=== PATIENT | male | born 1990 ===

== ENCOUNTER 2020-10-17 08:27 | Day surgery (SDC) | payer BC ==
[~2020-10-17 08:27] MED LIST: LACTATED RINGERS 1,000 ML IV SCH
[2020-10-17] MEDS ORDERED: ONDANSETRON 4 MG/2 ML INJ IV PRN (09:15)
[2020-10-17] MEDS ORDERED: fentaNYL 100 MCG/2 ML INJ IV PRN (09:15)
--- NOTE | 2020-10-17 09:19 | Anesthesia Consultation ---
Anesthesia Consult and Med Hx Date of service: 10/17/20 - Airway Anesthetic Teeth Evaluation: Good ROM Head & Neck: Adequate Mental/Hyoid Distance: Adequate Mallampati Class: Class II Intubation Access Assessment: Probably Good - Pre-Operative Health Status ASA Pre-Surgery Classification: ASA1 Proposed Anesthetic Plan: General - Pulmonary Hx Smoking: No Hx Asthma: No Hx Respiratory Symptoms: No SOB: No COPD: No Home Oxygen Therapy: No Hx Pneumonia: No Hx Sleep Apnea: No - Cardiovascular System Hx Hypertension: No Hx Coronary Artery Disease: No Hx Heart Attack/AMI: No Hx Angina: No Hx Percutaneous Transluminal Coronary Angioplasty (PTCA): No Hx Cardia Arrhythmia: No Hx Pacemaker: No Hx Internal Defibrillator: No Hx Valvular Heart Disease: No Hx Heart Murmur: No Hx Peripheral Vascular Disease: No - Central Nervous System Hx Neuromuscular Disorder: No Hx Seizures: No CVA: No Hx Back Pain: No Hx Psychiatric Problems: No - Gastrointestinal Hx Ulcer: No Hx Gastroesophageal Reflux Disease: No - Endocrine Hx Renal Disease: Yes (kidney stones) Hx End Stage Renal Disease: No Hx Cirrhosis: No Hx Liver Disease: No Hx Insulin Dependent Diabetes: No Hx Non-Insulin Dependent Diabetes: No Hx Thyroid Disease: No Hx Hypothyroidism: No Hx Hyperthyroidism: No - Hematic Hx Anemia: No Hx Sickle Cell Disease: No - Other Systems Hx Alcohol Use: Yes (Occas) Hx Substance Use: No Hx Cancer: No Hx Obesity: No
--- NOTE | 2020-10-17 09:20 | Anesthesia Day of Surgery ---
Anesthesia Day of Surgery - Day of Surgery Patient Examined: Yes Patient H&P Reviewed: Yes Patient is NPO: Yes
[2020-10-17] MEDS: MIDAZOLAM 2 MG/2 ML INJ IV NR ×2 (09:45→10:40)
[2020-10-17] MEDS ORDERED: ceFAZolin/STERILE WATER 2 GM/20 ML SYRINGE IV NR (10:00)
[2020-10-17] MEDS ORDERED: dexAMETHasone 20 MG/5 ML VIAL ONE (11:17)
[2020-10-17] MEDS ORDERED: ONDANSETRON 4 MG/2 ML INJ ONE (11:17)
[2020-10-17] MEDS ORDERED: HYDROmorphone 1 MG/1 ML INJ ONE (11:17)
[2020-10-17] MEDS ORDERED: LIDOCAINE MPF (2%) 20 MG/1 ML VIAL 5 ML ONE (11:17)
[2020-10-17] MEDS ORDERED: propofoL 200 MG/20 ML VIAL IV ONE (11:18)
[2020-10-17] MEDS ORDERED: fentaNYL 100 MCG/2 ML INJ ONE (11:18)
--- NOTE | 2020-10-17 11:24 | Post Operative Note ---
Date of procedure: 10/17/20 Pre-op diagnosis: LEFT URETERAL STONE S Post-op diagnosis: same Findings: ABOVE Procedure: CYSTO RPG STENT Anesthesia: GETA Surgeon: HUSSEIN RAMIREZ Estimated blood loss: none Pathology: none Condition: stable Disposition: PACU
--- NOTE | 2020-10-17 11:26 | Discharge Summary ---
Short Stay Discharge Plan Activity: other (NO STRAININ G ) Weight Bearing Status: Full Weight Bearing Diet: regular Special Instructions: other (INC FLUIDS ) Durable Medical Equipment Needed Upon Discharge: other (HAS J STENT ) Follow up with: PRIMARY CARE, [Primary Care Provider] - 7 Days HUSSEIN RAMIREZ MD [Staff Physician] - 7 Days
[2020-10-17] MEDS ORDERED: ePHEDrine SULFATE 50 MG/1 ML INJ ONE (12:05)
[2020-10-17] MEDS ORDERED: IOHEXOL 240 MG/ML 100 ML IV ONE (12:24)
[2020-10-17] MEDS ORDERED: WATER FOR IRRIG STERILE 2000 ML IR ONE (12:24)
--- NOTE | 2020-10-17 13:18 | Operative Report ---
PREOPERATIVE DIAGNOSES: Left renal stones, left upper ureteral stone. POSTOPERATIVE DIAGNOSES: Left renal stones, left upper ureteral stone. PROCEDURE: Cystoscopy, left retrograde, left ureteral balloon dilatation, ureteroscopy, laser of this ureteral stone into about 7-8 fragments, double-J stent. SURGEON: Dr. Hussein ANESTHESIA: General. FINDINGS: This is a gentleman with multiple left ureteral stone and upper ureteral stone. He now presents for treatment. He knows we may only place a stent. DESCRIPTION OF PROCEDURE: The patient was brought to the operative room and placed on the operating table. Following induction of anesthesia, placed in lithotomy position, prepped and draped in usual sterile fashion. Cystourethroscopy showed a stone in the upper ureter, lots of edema. At this point, 2 wires were placed. Balloon dilatation was carried out because the orifice was small. Ureteroscopy revealed the stone was quite large and it was lasered into multiple fragments. The patient tolerated the procedure well. The scope was removed and a double J coiled in the kidney and bladder, we left the string. I suspect we will do lithotripsy in the lower pole stones at a later date. He was brought to recovery in stable condition. JOB# [id number] CAROLE/BESSIE
--- NOTE | 2020-10-17 14:03 | Post Anesthesia Evaluation ---
- Post Anesthesia Evaluation Patient Participated: Yes Airway Patent: Yes Stable Respiratory Function: Yes Nausea/Vomiting: No Temp > 96.8F: Yes Pain Manageable: Yes Adequeate Hydration: Yes Anesthesia Complications: No
[2020-10-17 15:40] VITALS: BP 124/68
--- NOTE | 2020-10-17 16:38 | Fluoroscopy Report ---
6 fluoroscopic images submitted Indication: Intraoperative localization Impression: 6 images of the abdomen were submitted for documentation purposes with radiology involve adonay. Patient underwent left-sided retrograde pyelogram followed by ureteroscopy and stone removal. Ultimately a left-sided double-J ureteral stent was placed. A total of 35 mL of Omnipaque 300 was uti lized for this exam. Please refer to the operative note for complete details. Fluoroscopic time: 1 minute and 9 seconds Signer Name: Glenn Craig MD Signed: 10/17/2020 4:33 PM Workstation Name: [id number]
== END 2020-10-17 08:28 | disposition home or self-care (01) ==
LOC: OR 08:27
PROVIDERS: ATTEND Urology
DX: N13.2 Hydronephrosis with renal and ureteral calculous obstruction (principal); Z79.899 Other long term (current) drug therapy; Z72.89 Other problems related to lifestyle; Z98.890 Other specified postprocedural states
CPT/HCPCS: 52356; 74420; 74485; A4217; C1726; C1758; C1769; C2617; J0690; J1100; J1170; J2250; J2405; J2704; J7120; Q9967; J3010

== ENCOUNTER 2020-11-03 06:13 | Day surgery (SDC) | payer BC ==
[2020-11-03] MEDS: MIDAZOLAM 2 MG/2 ML INJ IV NR ×2 (06:46→07:05)
--- NOTE | 2020-11-03 06:54 | Anesthesia Day of Surgery ---
Anesthesia Day of Surgery - Day of Surgery Patient Examined: Yes Patient H&P Reviewed: Yes Patient is NPO: Yes
--- NOTE | 2020-11-03 06:54 | Anesthesia Consultation ---
Anesthesia Consult and Med Hx Date of service: 11/03/20 - Airway Anesthetic Teeth Evaluation: Good ROM Head & Neck: Adequate Mental/Hyoid Distance: Adequate Mallampati Class: Class II Intubation Access Assessment: Good - Pulmonary Exam CTA: Yes - Cardiac Exam Cardiac Exam: RRR - Pre-Operative Health Status ASA Pre-Surgery Classification: ASA1 Proposed Anesthetic Plan: General - Pulmonary Hx Smoking: No Hx Asthma: No Hx Respiratory Symptoms: No SOB: No COPD: No Hx Pneumonia: No Hx Sleep Apnea: No (DERECK PRE SCREEN LOW RISK) - Cardiovascular System Hx Hypertension: No Hx Coronary Artery Disease: No Hx Heart Attack/AMI: No Hx Angina: No Hx Percutaneous Transluminal Coronary Angioplasty (PTCA): No Hx Cardia Arrhythmia: No Hx Pacemaker: No Hx Internal Defibrillator: No Hx Valvular Heart Disease: No Hx Heart Murmur: No Hx Peripheral Vascular Disease: No - Central Nervous System Hx Neuromuscular Disorder: No Hx Seizures: No CVA: No Hx Back Pain: No Hx Psychiatric Problems: No - Gastrointestinal Hx Ulcer: No Hx Gastroesophageal Reflux Disease: No - Endocrine Hx Renal Disease: Yes (kidney stones) Hx End Stage Renal Disease: No Hx Cirrhosis: No Hx Liver Disease: No Hx Insulin Dependent Diabetes: No Hx Non-Insulin Dependent Diabetes: No Hx Thyroid Disease: No Hx Hypothyroidism: No Hx Hyperthyroidism: No - Hematic Hx Anemia: No Hx Sickle Cell Disease: No - Other Systems Hx Alcohol Use: Yes (OCC.) Hx Substance Use: No Hx Cancer: No Hx Obesity: No
[2020-11-03] MEDS ORDERED: LIDOCAINE MPF (2%) 20 MG/1 ML VIAL 5 ML ONE (06:58)
[2020-11-03] MEDS ORDERED: fentaNYL 100 MCG/2 ML INJ ONE (06:58)
[2020-11-03] MEDS ORDERED: propofoL 200 MG/20 ML VIAL IV ONE (06:58)
[2020-11-03] MEDS ORDERED: ONDANSETRON 4 MG/2 ML INJ IV PRN (07:24)
[2020-11-03] MEDS ORDERED: HYDROcodone/ACETAMINOPHEN 5-325 MG TAB PO PRN (07:24)
[2020-11-03] MEDS ORDERED: ceFAZolin/STERILE WATER 2 GM/20 ML SYRINGE IV NR (07:26)
[2020-11-03] MEDS ORDERED: ONDANSETRON 4 MG/2 ML INJ ONE (08:13)
--- NOTE | 2020-11-03 08:57 | Operative Report ---
PREOPERATIVE DIAGNOSIS: Left renal ureteral stone. POSTOPERATIVE DIAGNOSES: Left renal ureteral stone. PROCEDURE: Left lithotripsy. SURGEON: Dr. Hussein. ANESTHESIA: General. FINDINGS: This is a gentleman who had a large ureteral stone in the upper ureter. Ureteroscopy and laser destroyed that one. He has a cluster of stones, also in the left lower pole and now presents for lithotripsy with a double-J stent in place. DESCRIPTION OF PROCEDURE: The patient was brought to lithotripsy unit and placed on the operating table. Following induction of anesthesia, the stone was easily localized both the AP and oblique image. Shocks were begun at 1 kV. A renal pause was carried out, increased to a maximum of 8 kV. Good fragmentation was obtained. The patient tolerated the procedure well. No significant complications, brought to recovery in stable condition. JOB# [id number] CAROLE/BESSIE
--- NOTE | 2020-11-03 09:33 | Post Operative Note ---
Date of procedure: 11/03/20 Pre-op diagnosis: L renal stones Post-op diagnosis: same Findings: as above Procedure: L eswl Anesthesia: ROSINA Surgeon: HUSSEIN RAMIREZ Estimated blood loss: none Pathology: none Condition: stable Disposition: PACU
--- NOTE | 2020-11-03 09:34 | Discharge Summary ---
Short Stay Discharge Plan Activity: other (no straining ) Weight Bearing Status: Full Weight Bearing Diet: low fat, low cholesterol, low salt Special Instructions: other (inc fluids ) Durable Medical Equipment Needed Upon Discharge: other (has stent ) Follow up with: PRIMARY CARE, [Primary Care Provider] - 7 Days HUSSEIN RAMIREZ MD [Staff Physician] - 7 Days
[2020-11-03 10:19] VITALS: BP 108/70
== END 2020-11-03 06:14 | disposition home or self-care (01) ==
LOC: OR 06:13
PROVIDERS: ATTEND Urology
DX: N13.2 Hydronephrosis with renal and ureteral calculous obstruction (principal); Z72.89 Other problems related to lifestyle; Z98.890 Other specified postprocedural states
CPT/HCPCS: 50590; J0690; J2250; J2405; J2704; J7120; J3010